=== PATIENT | male | born 1950 | race Caucasian/White ===

== ENCOUNTER 2018-05-10 05:50 | Inpatient (IN) | payer OTHER, MEDICARE ==
[~2018-05-10] VITALS: Ht 157.5 cm; Wt 74.8 kg
[~2018-05-10 05:50] MED LIST: AZAT50TA9 PO; IRBE75TA10 PO; TADA5TAB2 PO
[2018-05-10] MEDS ORDERED: LACTATED RINGERS 1,000 ML IV SCH (07:01)
[2018-05-10] MEDS ORDERED: MIDAZOLAM 1 MG/ML, 2ML ONE (07:13)
[2018-05-10] MEDS ORDERED: FENTANYL PF 250 MCG/5ML ONE (07:13)
[2018-05-10 07:20] LABS: ALANINE AMINOTRANSFERASE 28 U/L (12-78); ALBUMIN 3.9 g/dL (3.4-5.0); ANION GAP 8 mmol/L (5-15); CHLORIDE 114 mmol/L (98-107); CREATININE 0.87 mg/dL (0.7-1.3)
[2018-05-10 07:22] LABS: ALKALINE PHOSPHATASE 61 U/L (45-117); BILIRUBIN,TOTAL 0.7 mg/dL (0.2-1.0); TOTAL PROTEIN 7.5 g/dL (6.4-8.2)
[2018-05-10] MEDS ORDERED: ROCURONIUM 10 MG/ML,10ML ONE (07:30)
[2018-05-10] MEDS ORDERED: DEXAMETHASONE 4 MG/ML, 1ML ONE (07:30)
[2018-05-10] MEDS ORDERED: CEFAZOLIN 1,000 MG ONE (07:30)
[2018-05-10] MEDS ORDERED: PROPOFOL 10 MG/ML, 20ML ONE (07:30)
[2018-05-10] MEDS ORDERED: LORazepam 2 MG/ML, 1ML IVPush PRN (08:00)
[2018-05-10] MEDS ORDERED: HYDROmorphone 2 MG/ML, 1ML IVPush PRN (08:00)
[2018-05-10] MEDS ORDERED: FENTANYL PF 100 MCG/2ML IV PRN (08:00)
[2018-05-10] MEDS ORDERED: OXYcodone 5 MG/5 ML ORAL.SOL UDC PO PRN (08:00)
[2018-05-10] MEDS ORDERED: ALBUTEROL SULFATE 2.5 MG/3 ML NPPB PRN (08:00)
[2018-05-10] MEDS ORDERED: LABETALOL 5MG/ML, 20ML IV PRN (08:00)
[2018-05-10] MEDS ORDERED: ACETAMINOPHEN 325 MG TABLET PO PRN (08:00)
[2018-05-10] MEDS ORDERED: hydrALAzine 20 MG/ML, 1ML IV PRN (08:00)
[2018-05-10] MEDS ORDERED: MEPERIDINE/PF 25MG/0.5ML IVPush PRN (08:00)
[2018-05-10] MEDS ORDERED: PROMETHAZINE 25 MG/ML, 1ML IV PRN (08:00)
[2018-05-10] MEDS ORDERED: OPIUM/BELLADONNA SUPP.RECT 16.2-30 MG ONE ×2 (09:44)
[2018-05-10] MEDS ORDERED: OPIUM/BELLADONNA SUPP.RECT 16.2-60 MG PR ONE (10:00)
[2018-05-10] MEDS ORDERED: FENTANYL PF 100 MCG/2ML ONE (10:25)
[2018-05-10] MEDS ORDERED: D5%-0.45NACL+KCL 20MEQ 1,000 ML IV SCH (12:00)
[2018-05-10] MEDS ORDERED: OPIUM/BELLADONNA SUPP.RECT 16.2-60 MG PR PRN (12:00)
[2018-05-10] MEDS ORDERED: HYDROmorphone 2 MG/ML, 1ML IV PRN (12:00)
[2018-05-10] MEDS ORDERED: OXYcodone/APAP 5/325MG TABLET PO PRN (12:00)
[2018-05-10 13:06] VITALS: BP 119/79
[2018-05-10] MEDS ORDERED: ZOLPIDEM 10MG TABLET PO PRN (18:30)
[2018-05-10 19:21] VITALS: BP 107/69
[2018-05-11 01:01] VITALS: BP 90/49
[2018-05-11 03:57] VITALS: BP 94/61
[2018-05-11 07:53] VITALS: BP 108/67
[2018-05-11] MEDS ORDERED: SULF1TAB24 PO (08:59)
[2018-05-11] MEDS ORDERED: AZATHIOPRINE 50 MG TABLET PO SCH (09:00)
[2018-05-11] MEDS ORDERED: IRBESARTAN 150 MG TABLET PO SCH (09:00)
== END 2018-05-11 09:56 | disposition home or self-care (01) | DRG 713 ==
LOC: OUT 05:50 → 4NOR 11:29 → OUT 18:00 → DCLOUNGE 05-11 09:45
PROVIDERS: ADMIT Urology; ATTEND Urology
PROC: 0V508ZZ Destruction of Prostate, Via Natural or Artificial Opening Endoscopic (ICD-10-PCS; principal; 2018-05-10 07:30)
DX: N40.1 Benign prostatic hyperplasia with lower urinary tract symptoms (principal); N13.8 Other obstructive and reflux uropathy
CPT/HCPCS: 36415; 80053; G0378; J0290; J0690; J1100; J2250; J2704; J3010; J7500; C1769; J1580; J3480; J7120